=== PATIENT | female | born 1960 | race Native Hawaiian/Other Pacific Islander ===

== ENCOUNTER 2017-10-14 09:33 | Outpatient (CLI) | payer OTHER | END 2017-10-14 10:40 | disposition home or self-care (01) | LOC: MRI 09:33 | DX: M54.17 Radiculopathy, lumbosacral region (principal) ==

== ENCOUNTER 2018-08-17 09:42 | Outpatient (CLI) | payer OTHER | END 2018-08-17 20:33 | disposition home or self-care (01) | LOC: MAMMO 09:42 | DX: Z13.820 Encounter for screening for osteoporosis (principal); Z12.31 Encounter for screening mammogram for malignant neoplasm of breast ==

== ENCOUNTER 2018-11-17 10:59 | Outpatient (CLI) | payer OTHER | END 2018-11-17 23:22 | disposition home or self-care (01) | LOC: RAD 10:59 | DX: M17.4 Other bilateral secondary osteoarthritis of knee (principal) ==

== ENCOUNTER 2019-06-27 11:56 | Outpatient (CLI) | payer OTHER | END 2019-06-27 19:52 | disposition home or self-care (01) | LOC: RAD 11:56 | DX: M25.561 Pain in right knee (principal) ==

== ENCOUNTER 2020-05-23 08:45 | Outpatient (CLI) | payer OTHER | END 2020-05-23 18:57 | disposition home or self-care (01) | LOC: RAD 08:45 | DX: M54.12 Radiculopathy, cervical region (principal) ==

== ENCOUNTER 2020-06-10 08:54 | Outpatient (CLI) | payer OTHER | END 2020-06-10 21:22 | disposition home or self-care (01) | LOC: MRI 08:54 | DX: M47.812 Spondylosis without myelopathy or radiculopathy, cervical region (principal) ==

== ENCOUNTER 2020-10-03 09:28 | Outpatient (CLI) | payer OTHER | END 2020-10-03 19:28 | disposition home or self-care (01) | LOC: MRI 09:28 | PROVIDERS: ATTEND Nurse Practitioner Family | DX: M48.02 Spinal stenosis, cervical region (principal) ==

== ENCOUNTER 2020-11-03 10:00 | Outpatient (CLI) | payer OTHER | END 2020-11-03 19:35 | disposition home or self-care (01) | LOC: MRI 10:00 | PROVIDERS: ATTEND Nurse Practitioner Family | DX: M48.02 Spinal stenosis, cervical region (principal) ==

== ENCOUNTER 2021-02-17 09:28 | Outpatient (CLI) | payer OTHER ==
[2021-02-17 10:00] LABS: PLATELET COUNT 220 K/uL (152-353)
[2021-02-17 10:03] LABS: POTASSIUM 3.6 mmol/L (3.6-5.2)
== END 2021-02-17 19:09 | disposition home or self-care (01) ==
LOC: LABW 09:28
PROVIDERS: ATTEND Nurse Practitioner Family
DX: Z01.818 Encounter for other preprocedural examination (principal)
CPT/HCPCS: 36415; 80053; 85027; 93005